=== PATIENT | male | born 1990 | race Caucasian/White ===

== ENCOUNTER → 2020-07-30 | Outpatient (CLI) | payer BC ==
[~2020-07-30] MED LIST: CYCLOBENZAPRINE10 MG PO; IBUPROFEN200 M1 PO; OMEPRAZOLE40 MG PO
== END ==
LOC: EMI 13:00
DX: M24.411 Recurrent dislocation, right shoulder (principal); M25.311 Other instability, right shoulder; S43.431A Superior glenoid labrum lesion of right shoulder, initial encounter; M12.811 Other specific arthropathies, not elsewhere classified, right shoulder
CPT/HCPCS: 73221

== ENCOUNTER → 2020-09-21 | Day surgery (SDC) | payer OTHER | END | disposition home or self-care (01) | LOC: OR 06:10 | DX: M25.211 Flail joint, right shoulder (principal); S43.431A Superior glenoid labrum lesion of right shoulder, initial encounter; K21.9 Gastro-esophageal reflux disease without esophagitis; X50.0XXA Overexertion from strenuous movement or load, initial encounter | CPT/HCPCS: C1713; J0171; J0592; J0690; J1100; J2001; J2250; J2405; J2704; J2765; J2795; J7120 ==

== ENCOUNTER → 2021-06-28 | Day surgery (SDC) | payer BC ==
[~2021-06-28] VITALS: Ht 185.4 cm; Wt 115.2 kg
[~2021-06-28] MED LIST changes: +CELEBREX200 MG PO; +CLARITIN10 MG PO; +IBU800 MG PO
== END | disposition home or self-care (01) ==
LOC: OR 05:50
DX: G56.01 Carpal tunnel syndrome, right upper limb (principal); F17.290 Nicotine dependence, other tobacco product, uncomplicated; Z96.22 Myringotomy tube(s) status; Z20.822 Contact with and (suspected) exposure to COVID-19
CPT/HCPCS: J0690; J1100; J1885; J2250; J2405; J2704; J3010; J7050; J7120